=== PATIENT | female | born 1950 | race Caucasian/White ===

== ENCOUNTER 2023-12-23 12:53 | Outpatient (REF) | payer BC, SELFPAY ==
--- NOTE | ~2023-12-23 | XR_ITS ---
EXAMINATION: XR SHOULDER, LEFT CLINICAL INFORMATION: M25.512 - Pain in left shoulder COMPARISON: None available. TECHNIQUE: AP external rotation, Grashey, scapular Y, and axillary views of the left shoulder. FINDINGS: Mildly comminuted fracture of the greater tuberosity of the humerus, nondisplaced. No definite intra-articular component, although limited from lack of external rotation. No additional fractures. Mild erosive and hypertrophic changes of the AC joint, likely degenerative in nature. Subacromial space is preserved. The glenohumeral joint space appears preserved. Laterally downsloping acromion. No subacromial spurs. Remainder of the soft tissue and bony structures appear normal. XR/XR shoulder LT min 2V IMPRESSION: 1. Mildly comminuted nondisplaced fracture greater tuberosity of the left humeral head. No definite intra-articular extension seen. 2. No additional acute finding. Electronically signed by: Tony Harvey MD 03/04/2024 02:49 PM EST
== END 2023-12-23 12:54 | disposition home or self-care (01) ==
LOC: HO.XRAY 12:53
PROVIDERS: PCP Internal Medicine Endocrinology, Diabetes & Metabolism; Visit Provider Physician Assistant
DX: M25.512 Pain in left shoulder (principal)
CPT/HCPCS: 73030

== ENCOUNTER → 2023-12-23 12:57 | Outpatient (BNV) | payer BC, SELFPAY | PROVIDERS: PCP Internal Medicine Endocrinology, Diabetes & Metabolism; Visit Provider Radiology Diagnostic Radiology | DX: M25.512 Pain in left shoulder (principal) | CPT/HCPCS: 73030 ==

== ENCOUNTER 2023-12-23 13:33 | Outpatient (AMB) | payer BC, SELFPAY ==
--- NOTE | 2023-12-23 13:42 | A.OFFVIS_ITS ---
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 Patient reports that she tripped and fell landing on her left shoulder. She was seen at [facility] ER where xrays were taken and placed in a sling. Her pain has improved sincer her injury, stating intermittent ache. Denies numbness or tingling. 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 She reports she tripped and fell landing on her left shoulder. She was seen at [facility] ER where x-rays were performed and she was placed in a sling. She currently states she has improvement however she continues to have intermittent aching pain in her shoulder. She denies any numbness or tingling. [facility] Surgical History (Updated 12/23/23 @ 13:44 by RICK Quintero) History of hip replacement Social History (Updated 12/23/23 @ 13:45 by RICK Quintero) Patient Tobacco Use Status: Never used Tobacco Current occupational status: retired Current occupation: left hand dominant Review of Systems Const All systems reviewed & are unremarkable except as noted in HPI and below Physical Exam Vital Signs: BMI result Body Mass Index 27.4 Const General: cooperative, healthy appearing, comfortable, no acute distress, well developed and alert Orientation/consciousness: patient oriented x3 HEENT Head: Yes normal to inspection, Yes normocephalic and Yes atraumatic Eyes General: appearance normal, both eyes and all related structures Resp Effort & Inspection: normal respiratory effort and able to speak in complete sentences Cardio Rate: regular rate Peripheral pulses: Peripheral pulses 2+ throughout GI Palpation (GI): Soft to palpation Skin Lesions: no lesions Rashes: no rashes Neuro General: patient oriented x3 Extrem Other: Left shoulder: Normal to inspection. Minor Swelling and tenderness over the p roximal humerus which extends down the arm. Anterior deltoid sensation intact. Elbow and wrist ROM intact. NVI. Office Procedures Fracture Care Fracture Billing Code: Fracture Billing Code Results Reviewed Results Reviewed: xray of the left shoulder obtained today show non displaced proximal humerus fracture Assessment & Plan Assessment & Plan (1) Closed fracture of left proximal humerus: Code(s): S4.A - Unspecified fracture of upper end of left humerus, initial encounter for closed fracture Category: Medical Qualifiers: Encounter type: initial encounter Fracture morphology: other fracture Fracture alignment: nondisplaced Qualified Code(s): S42.295A - Other nondisplaced fracture of upper end of left humerus, initial encounter for closed fracture Plan She will discontinue her sling. She can wear the sling when she is out in public, for comfort and sleeping. She should avoid any type of overhead reaching or lifting more than a cellphone. She was also given a course of physical therapy to work on ROM and periscapular stabilization. I would like to see her back in 4 weeks with new x-rays, sooner if needed. Orders: Orders XR shoulder LT min 2V Today M25.512 - Pain in left shoulder PT Evaluation and Treatment Today S4.A - Unspecified fracture of upper end of left humerus, initial encounter for closed fracture Patient Instructions: Scribed for Edward Jamison PA-C, by Satnam Solano medical social consultant, on 12/23/2023 at 1:30 PM EST.? I, Edward Jamison PA-C, have personally reviewed and agree with the information entered by the scribe. Coding Level of Care Code New Pt Level 3 (16938) Complex EM visit Add On G2211 Diagnoses Other closed nondisplaced fracture of proximal end of left humerus, initial encounter S42.295A Encounter type: initial encounter Fracture morphology: other fracture Fracture alignment: nondisplaced CPT Codes Fracture Care - Fracture Billing Code: Fracture Billing Code ([id number])
[2023-12-23 13:43] VITALS: BMI 27.4
== END 2023-12-23 14:11 | disposition home or self-care (01) ==
PROVIDERS: PCP Internal Medicine Endocrinology, Diabetes & Metabolism; Visit Provider Physician Assistant
DX: S42.295A Other nondisplaced fracture of upper end of left humerus, initial encounter for closed fracture (principal)
CPT/HCPCS: 99203

== ENCOUNTER 2024-01-19 10:24 | Outpatient (REF) | payer BC, SELFPAY ==
--- NOTE | ~2024-01-19 | XR_ITS ---
EXAMINATION: XR SHOULDER, LEFT CLINICAL INFORMATION: M25.512 - Pain in left shoulder COMPARISON: 12/23/2023. TECHNIQUE: Three views of the left shoulder. FINDINGS: Redemonstration of mildly comminuted fracture of the greater tuberosity of the left humeral head, nondisplaced. No definite intra-articular component. Fracture lines still visible but slightly less distinct when compared with prior exams, there is some small amount of marginal bony callus formation suggesting healing. No additional fractures. Mild erosive and hypertrophic changes of the AC joint, likely degenerative in nature. Subacromial space is preserved. The glenohumeral joint space appears preserved. Laterally downsloping acromion. No subacromial spurs. Remainder of the soft tissue and bony structures appear normal. XR/XR shoulder LT min 2V IMPRESSION: 1. Evidence of early healing of mildly comminuted nondisplaced fracture greater tuberosity of the left humeral head, in anatomic alignment. 2. No new findings. Electronically signed by: Tony Harvey MD 03/04/2024 02:51 PM EST
== END 2024-01-19 10:25 | disposition home or self-care (01) ==
LOC: HO.HOSX 10:24
PROVIDERS: Visit Provider Physician Assistant
DX: M25.512 Pain in left shoulder (principal); S42.295D Other nondisplaced fracture of upper end of left humerus, subsequent encounter for fracture with routine healing
CPT/HCPCS: 73030

== ENCOUNTER 2024-01-19 12:28 | Outpatient (AMB) | payer BC, SELFPAY ==
--- NOTE | 2024-01-19 12:46 | MHC.OFFVIS ---
Intake Visit Reasons: 4wk f/u left prox hum fracture w xrays Intake Note: Geraldine a 73 year old left hand dominant female who presents today for a follow up of left humerus fracture, DOI 12/08/23. Patient reports having improvement in her pain, she continues to have intermittent discomfort at the anterior side of shoulder. Allergies Sulfa (Sulfonamide Antibiotics) Allergy (Verified 01/19/24 12:48) Hives Medication List - Last Reconciled 01/19/24 by Edward Jamison PA-C atorvastatin 10 mg PO DAILY levothyroxine 100 mcg PO DAILY HPI HPI 4wk f/u left prox hum fracture w xrays: Details: 73-year-old left hand dominant female who returns to the office today for a follow-up of left proximal humerus fracture, 12/08/23. She states she has improvement however she does have intermittent discomfort at the anterior aspect of her shoulder. She is doing well otherwise and has no other concerns today. [facility] Surgical History History of hip replacement Social History Patient Tobacco Use Status: Never used Tobacco Current occupational status: retired Current occupation: left hand dominant Review of Systems Const All systems reviewed & are unremarkable except as noted in HPI and below Physical Exam Const General: cooperative, healthy appearing, comfortable, no acute distress, well developed and alert Orientation/consciousness: patient oriented x3 HEENT Head: Yes normal to inspection, Yes normocephalic and Yes atraumatic Eyes General: appearance normal, both eyes and all related structures Resp Effort & Inspection: normal respiratory effort and able to speak in complete sentences Cardio Rate: regular rate Peripheral pulses: Peripheral pulses 2+ throughout GI Palpation (GI): Soft to palpation Skin Lesions: no lesions Rashes: no rashes Neuro General: patient oriented x3 Extrem Other: Left shoulder: Normal to inspection. No Swelling, mild tenderness over the proximal bicep tendon. Anterior deltoid sensation intact. Elbow and wrist ROM intact. NVI. Results Reviewed Results Reviewed: xray of the left shoulder obtained today show non displaced proximal humerus fracture Assessment & Plan Assessment & Plan (1) Closed fracture of left proximal humerus: Code(s): S42.202A - Unspecified fracture of upper end of left humerus, initial encounter for closed fracture Category: Medical Qualifiers: Encounter type: initial encounter Fracture alignment: nondisplaced Fracture morphology: other fracture Qualified Code(s): S42.295A - Other nondisplaced fracture of upper end of left humerus, initial encounter for closed fracture Plan She will work with physical therapy for ROM and periscapular strengthening, no RTC strengthening. She will see back in 6-8 weeks with x-rays, sooner if needed. Orders: Orders XR shoulder LT min 2V Today M25.512 - Pain in left shoulder Patient Instructions: Scribed for Edward Jamison PA-C, by Satnam Solano center medical director, on 01/19/2024 at 12:45 PM EST.? I, Edward Jamison PA-C, have personally reviewed and agree with the information entered by the scribe. Coding Level of Care Code Global (02496) Diagnoses Other closed nondisplaced fracture of proximal end of left humerus, initial encounter S42.295A Encounter type: initial encounter Fracture alignment: nondisplaced Fracture morphology: other fracture
== END 2024-01-19 12:56 | disposition home or self-care (01) ==
PROVIDERS: PCP Internal Medicine Endocrinology, Diabetes & Metabolism; Visit Provider Physician Assistant
DX: S42.295A Other nondisplaced fracture of upper end of left humerus, initial encounter for closed fracture (principal)
CPT/HCPCS: 99213

== ENCOUNTER → 2024-01-19 12:34 | Outpatient (BNV) | payer BC, SELFPAY | PROVIDERS: Visit Provider Radiology Diagnostic Radiology | DX: M25.512 Pain in left shoulder (principal); S42.202D Unspecified fracture of upper end of left humerus, subsequent encounter for fracture with routine healing | CPT/HCPCS: 73030 ==

== ENCOUNTER 2024-02-29 15:15 | Outpatient (REF) | payer BC, SELFPAY ==
--- OUTSIDE RECORDS SUMMARY | 2024-03-06 20:58 | XMS_ITS | Continuity of Care Document ---
Author Organization [facility] [address] [place] [address] Phone [phone] Care Team Providers Care Emergency Specialist Name Role Phone Genaro Webber M.D. Care Team Information Re ceiver [phone] Problems Active Problems Provider Date Hyperlipidemia Genaro Webber M.D. Onset: 0 06/29/2022 Hypothyroidism Genaro Webber M.D. Onset: 0 06/29/2022 Gastroesophageal reflux disease Genaro mcgraw M.D. 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 07/21/2023 Levothyroxine [id number] Tablets Take 1 Tablet By Mouth Once A Day 90tabs Genaro Webber M.D. 06/29/[id number] 1 cap by mouth every day Genaro Webber M.D. 06/29/2022 Vital Signs Date Vital Result Comment 07/21/2023 11:07am BP Systolic 110 mmHg BP Diastolic 70 mmHg Heart Rate 72 /min Height 64 inches 5'4 Weight 158.00 lb BMI (Body Mass Index) 27.1 kg/m2 Results Test Acquired Date Facility Test Result H/L Range Note Comprehensive Metabolic Panl 07/11/2023 [facility] Glucose 81 mg/dL 70-99 BUN 18 mg/dL 8-27 Creatinine 0.80 mg/dL 0.57-1.00 eGFR 78 mL/min/1.7 3 >59 BUN/Creatinine Ratio 23 12-28 Sodium 142 mmol/L 134-144 Potassium 4.0 mmol/L 3.5-5.2 Chloride 104 mmol/L 96-106 Anion Gap 12.0 mmol/L 10.0-18.0 Carbon Dioxide, Total 26 mmol/L 20-29 Calcium 9.5 mg/dL 8.7-10.3 Protein, Total 6.5 g/dL 6.0-8.5 Albumin 4.1 g/dL 3.8-4.8 Globulin, Total 2.4 g/dL 1.5-4.5 A/G Ratio 1.7 1.2-2.2 Bilirubin, Total 0.5 mg/dL 0.0-1 .2 Alkaline Phosphatase 96 IU/L 44-121 Ast (Sgot) 20 IU/L 0-40 Alt (SGPT) 18 IU/L 0-32 Lipid Panel 07/11/2023 [facility] Cholesterol, Total 194 mg/dL 100-199 Triglycerides 92 mg/dL 0-149 HDL Cholesterol 59 mg/dL >39 VLDL Cholestero l Dimitrios 17 mg/dL 5-40 LDL Chol Calc (Nih) 118 mg/dL High 0-99 Non-HDL Cholesterol 135 mg/dL High 0-129 Comment: TNP Urinalysis Complete 07/11/2023 [facility] Specific Morven 1.021 1.005-1.03 0 pH 6.0 5.0-7.5 Urine-Color Yellow Yellow Appearance Clear Clear WBC Esterase Negative Negative Protein Negative Negative/T race Glucose Negative Negative Ketones Negative Negative Occult Blood Negative Negative Bilirubin Negative Negative Urobilinogen,Se m i-Qn 0.2 mg/dL 0.2-1.0 Nitrite, Urine Negative Negative Microscopic Examination See Comment: 1 Microscopic Examination See below: 2 WBC 0-5 /hpf 0 - 5 RBC 0-2 /hpf 0 - 2 Epithelial Cell s (non renal) 0-10 /hpf 0 - 10 Epithelial Cell s (renal) TNP Casts None seen /lpf None seen Cast Type TNP Crystals TNP Crystal Type TNP Mucus Threads TNP Bacteria None seen None seen/Few Yeast TNP Trichomonas TNP Comment TNP Complete Abc With Diff 07/11/2023 [facility] WBC 4.5 x10E3/uL 3.4-10.8 RBC 4.80 x10E6/uL 3.77-5.28 Hemoglobin 14.0 g/dL 11.1-15.9 Hematocrit 42.9 % 34.0-46.6 MCV 89 fL 79-97 MCH 29.2 pg 26.6-33.0 MCHC 32.6 g/dL 31.5-35.7 RDW 13.7 % 11.7-15.4 Platelets 195 x10E3/uL 150-450 Neutrophils 41 % Not Estab. Lymphs 48 % Not Estab. Monocytes 6 % Not Estab. Eos 4 % Not Estab. Basos 1 % Not Estab. Immature Cells TNP Neutrophils (Absolute) 1.8 x10E3/uL 1.4-7.0 Lymphs (Absolute) 2.1 x10E3/uL 0.7-3.1 Monocytes(Absol u te) 0.3 x10E3/uL 0.1-0.9 Eos (Absolute) 0.2 x10E3/uL 0.0-0.4 Baso (Absolute) 0.0 x10E3/uL 0.0-0.2 Immature Granulocytes 0 % Not Estab. Immature Grans (Abs) 0.0 x10E3/uL 0.0-0.1 NRBC TNP Hematology Comments: TNP Laboratory test finding 07/11/2023 [facility] Vitamin D, 25-Hydroxy 43.9 ng/mL 30.0-100.0 3 TSH reflex to T4F 1.140 uIU/mL 0.450-4.50 0 Order 06/29/2022 Inhouse EKG <pending> Complete Abc With Diff 06/28/2022 [facility] WBC 6.1 K/MM3 (4.0-11.0) RBC 4.67 M/MM3 (4.20-5.40 ) HGB 13.6 GM/DL (11.7-15.5 ) HCT 44.3 % (35.7-45.8 ) MCV 94.9 FL (80.0-100. 0) MCH 29.1 pg (27.0-34.0 ) MCHC 30.7 g/dL Low (33.0-37.0 ) PLT 283 K/MM3 (150-460) RDW-SD 53.5 FL High (<47.0) MPV 9.6 FL (9.4-12.4) Automated NRBC 0.0 #/100WBC'S Abs. NRBC 0.0 K/MM3 Neut # 3.0 K/MM3 (1.3-7.0) Lymph # 2.5 K/MM3 (0.8-3.1) Kent# 0.4 K/MM3 (0.4-0.9) Eo # 0.2 K/MM3 (0.0-0.4) Baso # 0.1 K/MM3 (0.0-0.1) Abs. Imm Gran 0.1 K/MM3 Neut 49.2 % (44-76) Lymph 40.2 % (15-43) Monocyte 5.9 % (4.5-10.5) Eo 2.6 % (0-6) Baso 0.8 % (0-2) Imm Gran 1.3 % Comprehensive Metabolic Panl 06/28/2022 [facility] Glucose 86 mg/dL (70-99) BUN 16 mg/dL (8-23) Creatinine 0.9 mg/dL (0.5-1.0) Sodium 143 mmol/L (133-145) Potassium 4.2 mmol/L (3.6-5.2) Chloride 106 mmol/L (98-107) Bicarbonate 30 mmol/L High (22-29) Anion Gap 7 (4-17) Albumin 4.3 GM/DL (3.4-4.8) Calcium 9.5 mg/dL (8.6-10.5) Bilirubin,Total 0.3 mg/dL (0-1.2 ) Total Protein 6.7 GM/DL (6.2-8.2 ) Ag Ratio 1.8 Ast 32 U/L (0-32) Alk Phos 104 U/L (35-104) Alt 43 U/L High (0-33) Estimated GFR Creatinine 72 ML/MIN/1.7 3M2 4 Urinalysis Complete 06/28/2022 [facility] Appear/Color LIGHT YELLOW 5 SP. Morven 1.019 (1.002-1.0 30) Urine PH 6.5 (5.0-8.0) Urine Albumin NEGATIVE (Neg) Urine Glucose NEGATIVE (Neg) Urine Ketones NEGATIVE (Neg) Urine Bilirubin NEGATIVE (Neg) Urine Hemoglobin NEGATIVE (Neg) Urine Nitrite NEGATIVE (Neg) Urine Leukocyte NEGATIVE (Neg) Urobilinogen NORMAL mg/dL (Norm) Urine WBCs <1 /HPF (0-5) Urine RBCs 2 /HPF (0-3) Lipid Panel 06/28/2022 [facility] Cholesterol, Total 140 mg/dL (<200) Triglyceride 107 mg/dL (<150) HDL Chol 43 mg/dL (>39) LDL Cholesterol , Calculated 76 mg/dL (0-130) Non HDL Cholesterol (Calc) 97 mg/dL (<160) Laboratory test finding 06/28/2022 [facility] TSH 3.96 uIU/mL (0.4-4.2) 1 Microscopic follows if indicated. 2 Microscopic was chicho cated and was performed. 3 Vitamin D deficiency has been defined by the [place] of [employer] and an Endocrine Society practice guideline as a level of serum 25-OH vitamin D less than 20 ng/mL (1,2). The Endocrine Society went on to further define vitamin D insufficiency as a level between 21 and 29 ng/mL (2). 1. IOM ([place] of [employer]). 2010. Dietary reference intakes for calcium and D. [place]: The National Academies Press. 2. Debby MF, Ahsan URIOSTEGUI, Paola HAMILTON, et al. Evaluation, treatment, and prevention of vitamin D deficiency: an Endocrine Society clinical practice guideline. JCEM. 2010; 96(7):1911-30. 4 Creatinine based est imated glomerular filtration (eGFR) in adults is calculated using the National Kidney Foundation recommended 2020 CKD-EPI equation. Estimates GFR from serum creatinine, age and sex. 5 CLEAR Procedures Date Code Description Status 06/29/2022 13086 Electrocardiogram Complete C ompleted Medical Devices Description No Information Available Encounters Type Date Location Provider Dx Diagnosis Office Visit 07/21/2023 10:45a Main Office Genaro Webber M.D. E03.9 Hypothyroidism, unspecified Z00.00 Encntr for general a dult medical exam w/o abnormal findings Assessments Date Code Description Provider 07/21/2023 E03.9 Hypothyroidism, unspecified Genaro Webber M.D. 07/21/2023 Z00.00 Encounter for ge neral adult medical examination without abnormal findings Genaro Webber M.D. Plan of Treatment Future Appointment(s):* 07/26/2024 10:45 am - Genaro Webebr M.D. at Main Office 07/21/2023 - Genaro Webber M.D.* E03.9 Hypothyroidism, unspecified * Z00.00 Encounter for general adult medical examination without abnormal findings * Functional Status Description No Information Available Mental Status Description No Information Available Referrals Refer to Reason for Referral Status Appt Supa Matias Cage MD Closed / 000 [address] [facility] [address] [place] [address] [phone] Linus Rosales OD Closed [address] [address] [phone] Ashwini Robertson MD Closed [address] [facility] [address] [place] [address] [id number] [phone] Michelle Woods MD H26.9 Closed [address] [address] [phone] Jackowitz, Papa CATARACT Closed [address] [address] [phone] Ashwini Robertson MD Created [address] [facility] [address] [place] [address] [phone]
== END 2024-02-29 15:16 | disposition home or self-care (01) ==
LOC: HO.HOSX 15:15
PROVIDERS: Visit Provider Physician Assistant
DX: Z13.89 Encounter for screening for other disorder (principal)

== ENCOUNTER 2024-03-01 13:52 | Outpatient (AMB) | payer BC, SELFPAY ==
--- NOTE | 2024-03-01 14:18 | A.OFFVIS_ITS ---
Intake Visit Reasons: OV- left prox hum fracture w xrays Intake Note: Geraldine a 73 year old left hand dominant female who presents today for a follow up of left humerus fracture, DOI 12/08/23. Patient reports she is doing better. She has been working with PT and she has been noticing improvements. Allergies Sulfa (Sulfonamide Antibiotics) Allergy (Verified 03/01/24 14:21) Hives Medication List - Last Reconciled 03/01/24 by Edward Jamiosn PA-C atorvastatin 10 mg PO DAILY levothyroxine 100 mcg PO DAILY HPI HPI OV- left prox hum fracture w xrays: Details: 73-year-old left hand dominant female who returns to the office today for a follow-up of left shoulder fracture, 12/08/23. She states she has improvement in her pain and is doing well overall. She also experiences difficulty with reaching seatbelts. She has been working on physical therapy with benefits. She has no other concerns today. [facility] Surgical History History of hip replacement Social History Patient Tobacco Use Status: Never used Tobacco Current occupational status: retired Current occupation: left hand dominant Review of Systems Const All systems reviewed & are unremarkable except as noted in HPI and below Physical Exam Extrem Other: Left shoulder: Forward flexion to 150 degrees. External rotation to 45 degrees. Internal rotation till back pocket. She has good activation of RTC strength. Results Reviewed Results Reviewed: xray of the left shoulder obtained today show non displaced proximal humerus fracture Assessment & Plan Assessment & Plan (1) Closed fracture of left proximal humerus: Code(s): S42.202A - Unspecified fracture of upper end of left humerus, initial encounter for closed fracture Category: Medical Qualifiers: Encounter type: initial encounter Fracture alignment: nondisplaced Fracture morphology: other fracture Qualified Code(s): S42.295A - Other nondisplaced fracture of upper end of left humerus, initial encounter for closed fracture Plan She will continue to work with physical therapy progressing to RTC strengthening exercises. She will continue to increase activities as tolerated and see back as needed if symptoms persist or worsen. Orders: Orders XR shoulder LT min 2V Today M25.512 - Pain in left shoulder PT Evaluation and Treatment Today S42.295A - Other nondisplaced fracture of upper end of left humerus, initial encounter for closed fracture Patient Instructions: Scribed for Edward Jamison PA-C, by Satnam Solano medical grade shoemaker, on 03/01/2024 at 1:45 PM EST.? I, Edward Jamison PA-C, have personally reviewed and agree with the information entered by the scribe. Coding Level of Care Code Global (55945) Diagnoses Other closed nondisplaced fracture of proximal end of left humerus, initial encounter S42.295A Encounter type: initial encounter Fracture alignment: nondisplaced Fracture morphology: other fracture
--- OUTSIDE RECORDS SUMMARY | 2024-03-07 02:56 | XMS_ITS | Continuity of Care Document ---
Author Organization [facility] [address] [place] [address] Phone [phone] Care Team Providers Care Bundle Person Name Role Phone Genaro Webber M.D. Care Team Information Re ceiver [phone] Problems Active Problems Provider Date Hyperlipidemia Genaro [...] SIG Qnty Indications Ordering Provider Date Atorvastatin [id number] Tablets 1 tablet by mouth every day 90tabs Genaro Webber M.D. 07/21/2023 Levothyroxine [id number] Tablets Take 1 Tablet By Mouth Once A Day 90tabs Genaro Webber M.D. 06/29/[id number] 1 cap by mouth every [...] Comment: TNP Urinalysis Complete 07/11/2023 [facility] [place] 1.021 1.005-1.03 0 pH 6.0 5.0-7.5 Urine-Color [...] EKG <pending> Complete Abc With Diff 06/28/2022 [facility] WBC 6.1 K/MM3 (4.0-11.0) RBC [...] K/MM3 (1.3-7.0) Lymph # 2.5 K/MM3 (0.8-3.1) [place]# 0.4 K/MM3 (0.4-0.9) Eo # 0.2 K/MM3 (0.0-0.4) Baso # 0.1 K/MM3 (0.0-0.1) Abs. Imm Gran 0.1 K/MM3 Neut 49.2 % (44-76) Lymph 40.2 % (15-43) Monocyte 5.9 % (4.5-10.5) Eo 2.6 % (0-6) Baso 0.8 % (0-2) Imm Gran 1.3 % Comprehensive Metabolic Panl 06/28/2022 [facility] Glucose 86 mg/dL (70-99) BUN [...] 72 ML/MIN/1.7 3M2 4 Urinalysis Complete 06/28/2022 [facility] Appear/Color LIGHT YELLOW 5 SP. [place] 1.019 (1.002-1.0 30) Urine PH 6.5 (5.0-8.0) Urine Albumin NEGATIVE (Neg) Urine Glucose NEGATIVE (Neg) Urine Ketones NEGATIVE (Neg) Urine Bilirubin NEGATIVE (Neg) Urine Hemoglobin NEGATIVE (Neg) Urine Nitrite NEGATIVE (Neg) Urine Leukocyte NEGATIVE (Neg) Urobilinogen NORMAL mg/dL (Norm) Urine WBCs <1 /HPF (0-5) Urine RBCs 2 /HPF (0-3) Lipid Panel 06/28/2022 [facility] Cholesterol, Total 140 mg/dL (<200) Triglyceride 107 mg/dL (<150) HDL Chol 43 mg/dL (>39) LDL Cholesterol , Calculated 76 mg/dL (0-130) Non HDL Cholesterol (Calc) 97 mg/dL (<160) Laboratory test finding 06/28/2022 [facility] TSH 3.96 uIU/mL (0.4-4.2) 1 Microscopic follows if indicated. 2 Microscopic was chicho cated and was performed. 3 Vitamin D deficiency has been defined by the [place] [employer] and an Endocrine Society practice guideline as a level of serum 25-OH vitamin D less than 20 ng/mL (1,2). The Endocrine Society went on to further define vitamin D insufficiency as a level between 21 and 29 ng/mL (2). 1. IOM ([place] [employer]). 2010. Dietary reference intakes for [...] CLEAR Procedures Date Code Description Status 06/29/2022 53677 Electrocardiogram Complete C ompleted Medical Devices Description [...] Future Appointment(s):* 07/26/2024 10:45 am - Genaro Webber M.D. at Main Office 07/21/2023 - Genaro Webber M.D.* E03.9 Hypothyroidism, unspecified * Z00.00 Encounter for general adult medical examination without abnormal findings * Functional Status Description No Information Available Mental Status Description No Information Available Referrals Refer to Reason for Referral Status Appt Supa Matias Cage MD Closed / 000 [address] [facility] [address] [place] [address] [phone] Linus Rosales OD Closed [address] [address] [phone] Ashwini Robertson MD Closed [address] [facility] [address] [place] [phone] Michelle Woods MD H26.9 Closed [address] [address] [phone] Jackowitz, Papa CATARACT Closed [address] [address] [phone] Ashwini Robertson MD Created [address] [facility] [address] [place] [phone]
== END 2024-03-01 14:58 | disposition home or self-care (01) ==
PROVIDERS: PCP Internal Medicine Endocrinology, Diabetes & Metabolism; Visit Provider Physician Assistant
DX: S42.295A Other nondisplaced fracture of upper end of left humerus, initial encounter for closed fracture (principal)
CPT/HCPCS: 99213

== ENCOUNTER 2024-03-01 13:52 | Outpatient (REF) | payer BC, SELFPAY ==
--- NOTE | ~2024-03-01 | XR_ITS ---
EXAMINATION: XR SHOULDER, LEFT CLINICAL INFORMATION: M25.512 - Pain in left shoulder COMPARISON: 01/19/2024, 12/23/2023. TECHNIQUE: Three views of the left shoulder. FINDINGS: Mild disuse osteopenia. Redemonstration of mildly comminuted fracture of the greater tuberosity of the left humeral head, nondisplaced. No definite intra-articular component. Fracture lines still visible but continue to be less distinct when compared with prior exams, there is some definite bridging marginal bony callus formation consistent with healing. No additional fractures. Mild erosive and hypertrophic changes of the AC joint, likely degenerative in nature. Subacromial space is preserved. The glenohumeral joint space appears preserved. Laterally downsloping acromion. No subacromial spurs. Remainder of the soft tissue and bony structures appear normal. XR/XR shoulder LT min 2V IMPRESSION: 1. Evidence of continued healing of mildly comminuted nondisplaced fracture greater tuberosity of the left humeral head, in anatomic alignment. 2. Mild disuse osteopenia. 3. No new findings. Electronically signed by: Tony Harvey MD 03/04/2024 02:53 PM EST
== END 2024-03-01 13:53 | disposition home or self-care (01) ==
LOC: HO.HOSX 13:52
PROVIDERS: PCP Internal Medicine Endocrinology, Diabetes & Metabolism; Visit Provider Physician Assistant
DX: M25.512 Pain in left shoulder (principal)
CPT/HCPCS: 73030

== ENCOUNTER → 2024-03-01 14:02 | Outpatient (BNV) | payer BC, SELFPAY | PROVIDERS: PCP Internal Medicine Endocrinology, Diabetes & Metabolism; Visit Provider Radiology Diagnostic Radiology | DX: S42.202D Unspecified fracture of upper end of left humerus, subsequent encounter for fracture with routine healing (principal); M25.512 Pain in left shoulder; W01.0XXD Fall on same level from slipping, tripping and stumbling without subsequent striking against object, subsequent encounter | CPT/HCPCS: 73030 ==